=== PATIENT | female | born 1965 ===

== ENCOUNTER 2019-02-13 01:39 | Emergency (ER) | payer SELFPAY ==
[2019-02-13 01:58] VITALS: BP 123/89; TEMP 98.8; O2SAT 99
[2019-02-13] MEDS ORDERED: Sodium Chloride 0.9% 1,000 ML IV STA (02:08)
[2019-02-13 02:39] LABS: BASO % 0.1 % (0.0-2.0); BLOOD UREA NITROGEN 16 mg/dl (7-17); CALCIUM 10.4 mg/dL (8.4-10.2); GFR NON-AFRICAN AMERICAN > 60; HEMOGLOBIN 15.7 g/dL (12.0-16.0); LIPASE 85 U/L (23-300); LYMPH # 0.6 K/uL (1.0-4.3); LYMPH % 3.8 % (20.0-40.0); MEAN CELL VOLUME 93.9 fl (81.0-99.0); MEAN CORPUSCULAR HEMOGLOBIN 31.6 pg (27.0-31.0); MEAN CORPUSCULAR HGB CONC 33.7 g/dL (33.0-37.0); MEAN PLATELET VOLUME 8.4 fl (7.2-11.7); MONO # 0.9 K/uL (0.0-0.8); MONO % 5.9 % (0.0-10.0); NEUT # 13.9 K/uL (1.8-7.0); NEUT % 90.2 % (50.0-75.0); PLATELET COUNT 330 K/uL (130-400); RBC 4.96 Mil/uL (3.80-5.20); RED CELL DISTRIBUTION WIDTH 12.4 % (11.5-14.5); WHITE BLOOD COUNT 15.4 K/uL (4.8-10.8)
[2019-02-13 02:49] LABS: ALB/GLOB RATIO 0.9 (1.0-2.1); ALBUMIN 4.9 g/dL (3.5-5.0); ALT/SGPT 25 U/L (9-52); AST/SGOT 66 U/L (14-36)
--- NOTE | 2019-02-13 02:51 | ED PDOC ---
HPI: Abdomen Time Seen by Provider: 02/13/19 02:00 Chief Complaint (Nursing): Abdominal Pain Chief Complaint (Provider): Abdominal Pain History Per: Patient History/Exam Limitations: no limitations Onset/Duration Of Symptoms: Hrs (3-4) Additional Complaint(s): 53 y/o female with history of HTN and osteoporosis presents to the ED complaining of abdominal pain, vomiting, and diarrhea, onset about 3-4 hours ago. Patient reports she ate some fried fish for dinner and then developed acute nausea, vomiting, and diarrhea after. Patient reports vomiting is bilious but non-bloody and that she has vomited over 10 times; she also reports over 10 episodes of non-bloody diarrhea. Patient states abdominal pain is diffuse. PMD: Ant Solis Past Medical History Vital Signs: Last Vital Signs Temp 98.8 F 02/13/19 01:55 Pulse 108 H 02/13/19 01:55 Resp 20 02/13/19 01:55 BP 123/89 02/13/19 01:55 Pulse Ox 99 02/13/19 01:55 - Medical History PMH: HTN, Osteoporosis - Surgical History Surgical History: Cholecystectomy - Family History Family History: States: Unknown Family Hx - Social History Current smoker - smoking cessation education provided: No Alcohol: None Drugs: Denies - Home Medications Home Medications: Ambulatory Orders Medication Instructions Recorded Dicyclomine [Bentyl] 20 mg PO Q12 PRN #10 tab 02/13/19 Ondansetron ODT [Zofran ODT] 4 mg PO Q6 PRN #8 odt 02/13/19 - Allergies Allergies/Adverse Reactions: Allergies Allergy/AdvReac Type Severity Reaction Status Date / Time No Known Allergies Allergy Verified 02/13/19 01:55 Review of Systems ROS Statement: Except As Marked, All Systems Reviewed And Found Negative Gastrointestinal: Positive for: Nausea, Vomiting, Abdominal Pain, Diarrhea Physical Exam - Reviewed Nursing Documentation Reviewed: Yes Vital Signs Reviewed: Yes - Physical Exam Appears: Positive for: Uncomfortable Head Exam: Positive for: ATRAUMATIC, NORMAL INSPECTION, NORMOCEPHALIC Skin: Positive for: Normal Color, Warm, DRY Eye Exam: Positive for: EOMI, Normal appearance, PERRL ENT: Positive for: Other (tacky mucous membranes) Cardiovascular/Chest: Positive for: Regular Rate, Rhythm, Tachycardia. Negative for: Murmur Respiratory: Positive for: Normal Breath Sounds. Negative for: Wheezing Gastrointestinal/Abdominal: Positive for: Tenderness (epigastric) Back: Positive for: Normal Inspection Extremity: Positive for: Normal ROM. Negative for: Pedal Edema, Deformity Neurological/Psych: Positive for: Awake, Alert, Normal Tone. Negative for: Motor/Sensory Deficits - Laboratory Results Result Diagrams: 02/13/19 02:27 02/13/19 02:27 Lab Results: Lipase 85 U/L (23-300) 02/13/19 02:27 - ECG O2 Sat by Pulse Oximetry: 99 (RA) Pulse Ox Interpretation: Normal Medical Decision Making Medical Decision Making: Time:02:07 Initial Impression:53 y/o with acute gastroenteritis Initial Plan: * Labs * IV Fluids * Zofran 4 mg 02:37 Labs reviewed no clinically significant abnormalities with exception of elevated white blood cell count. CT ordered. 04:01 CT Abd Pelvis Findings: Multifocal thickening and enhancement of the colon. Multifocal thickening and enhancement of the small bowels which are fluid- filled. The visualized lung bases are unremarkable. 4.7 cm cyst in the left hepatic lobe. Normal remaining liver. Absent gallbladder and nondilated extrahepatic biliary system. Normal spleen. Normal pancreas. Normal bilateral adrenal glands. Normal size of the right kidney. There is no right renal mass. There are no right renal calculi. There is no right hydronephrosis. Normal visualized right ureter. Normal size of the left kidney. There is no left renal mass. There are no left renal calculi. There is no left hydronephrosis. Normal visualized left ureter. Normal visualized stomach. The appendix is visualized and appears normal. There is no demonstrated peritoneal fluid. Normal abdominal aorta. Normal inferior vena cava. Normal retroperitoneum. Normal urinary bladder. There is no pelvic mass lesion or lymphadenopathy. There is no pelvic fluid. Normal abdominal wall. Normal osseous structures. Impression: Uncomplicated enterocolitis. 04:14 Patient reports marked improvement of symptoms at this time. Patient will be discharged home diagnosis is gastroenteritis. Scribe Attestation: Documented by Moisés Peoples, acting as a scribe forDr. Andreas Tyler MD Provider Scribe Attestation: All medical record entries made by the Scribe were at my direction and personally dictated by me. I have reviewed the chart and agree that the record accurately reflects my personal performance of the history, physical exam, medical decision making, and the department course for this patient. I have also personally directed, reviewed, and agree with the discharge instructions and disposition. Disposition - Clinical Impression Clinical Impression: Gastroenteritis - Patient ED Disposition Is Patient to be Admitted: No - Disposition Disposition: Routine/Home Disposition Time: 04:14 Condition: STABLE Additional Instructions: MURPHY BAUGH, thank you for letting us take care of you today. Your provider was Andreas Tyler MD and you were treated for ABD PAIN,VOMITING. The emergency medical care you received today was directed at your acute symptoms. If you were prescribed any medication, please fill it and take as directed. It may take several days for your symptoms to resolve. Return to the Emergency Department if your symptoms worsen, do not improve, or if you have any other problems. Please contact your doctor or call one of the physicians/clinics you have been referred to that are listed on the Patient Visit Information form that is included in your discharge packet. Bring any paperwork you were given at discharge with you along with any medications you are taking to your follow up visit. Our treatment cannot replace ongoing medical care by a primary care provider outside of the emergency department. Thank you for allowing the [facility] team to be part of your care today. If you had an X-Ray or CT scan: A Radiologist will review the ED reading if any change in treatment is needed we will contact you. If you had a blood, urine, or wound culture: It will take several days for the results, if any change in treatment is needed we will contact you. If you had an STI test: It will take 48 hours for the results. Please call after 1 week if you have not heard back. Prescriptions: Dicyclomine [Bentyl] 20 mg PO Q12 PRN #10 tab PRN Reason: abdominal pain/diarrhea Ondansetron ODT [Zofran ODT] 4 mg PO Q6 PRN #8 odt PRN Reason: Nausea/Vomiting Instructions: Gastroenteritis (ED) Forms: [facility] (Estonian) Print Language: AZERI
[2019-02-13] MEDS ORDERED: Iohexol 300 100 ML IJ ONE (02:59)
[2019-02-13] MEDS ORDERED: Sodium Chloride 0.9% 50 ML IV ONE (02:59)
[2019-02-13 04:07] LABS: BANDS 5 % (0-2); LYMPHOCYTE 3 % (20-50); MONOCYTE 6 % (0-10); NEUTROPHIL 85 % (42-75); PLATELET ESTIMATE NORMAL (NORMAL); REACTIVE LYMPHOCYTES 1 % (0-0); TOTAL CELLS COUNTED 100
[2019-02-13 04:08] LABS: STOMATOCYTES SLIGHT; TEARDROP CELLS SLIGHT
[2019-02-13 06:18] VITALS: PULSE 78; RESP 16
--- NOTE | 2019-02-13 13:41 | CT ---
Date of service: 02/13/2019 PROCEDURE: CT Abdomen and Pelvis with contrast HISTORY: abd pain COMPARISON: None. TECHNIQUE: Contrast dose: 90 milliliters Radiation dose: Total exam DLP = 496.35 mGy-cm. This CT exam was performed using one or more of the following dose reduction techniques: Automated exposure control, adjustment of the mA and/or kV according to patient size, and/or use of iterative reconstruction technique. FINDINGS: LOWER THORAX: Unremarkable. LIVER: There is evidence of a smoothly marginated and slightly lobulated low-density cyst in the left lobe of the liver measuring 4.1 x 4 centimeters. This more than likely represents a hepatic cyst. There is additionally some subtle low density seen anteriorly in the on axial images forty-two through 44 series 3 and on coronal image 25 and additionally on sagittal image 51 more than likely representing small air focal fat. No intrahepatic ductal dilatation is seen. GALLBLADDER AND BILE DUCTS: Gallbladder has been previously removed. Common bile duct is normal in size for a post cholecystectomy patient of this age. PANCREAS: Unremarkable. No gross lesion or ductal dilatation. SPLEEN: Unremarkable. ADRENALS: Unremarkable. No mass. KIDNEYS AND URETERS: Unremarkable. No hydronephrosis. No solid mass. VASCULATURE: Unremarkable. No aortic aneurysm. No aortic atherosclerotic calcification or mural plaque present. BOWEL: Evaluation of the bowel reveals numerous fluid-filled but not significantly dilated small bowel loops throughout the entire small bowel region with some mild fold thickening suspicious for enteritis. There is additionally fluid within the colon with some mild amounts of possible subtle colonic wall thickening although the colon is not adequately distended. Findings probably suggest additional colitis. No free intraperitoneal air is seen. No abscess is seen adjacent to the bowel. APPENDIX: Normal appendix. PERITONEUM: No free intraperitoneal air or ascites. LYMPH NODES: Unremarkable. No enlarged lymph nodes. BLADDER: Unremarkable. REPRODUCTIVE: Unremarkable. BONES: Degenerative changes in the spine without lytic process. OTHER FINDINGS: None. IMPRESSION: Nonspecific enterocolitis with without abscess or adjacent fluid collection. No free intraperitoneal air to suggest bowel perforation. Two hepatic lesions are identified and described in detail above. Clinical follow-up for these is suggested. This agrees with preliminary report.
--- NOTE | 2019-02-14 18:47 | CARD ---
APPROVED REPORT Date of service: 02/13/2019 EKG Measurement Heart [id number] <Conclusion> Sinus tachycardia Otherwise normal ECG
== END 2019-02-13 04:41 | disposition home or self-care (01) ==
LOC: H.ER 01:39
DX: K52.9 Noninfective gastroenteritis and colitis, unspecified (principal)
CPT/HCPCS: 74177; 80053; 83690; 85025; 93005; 96360; 99283; J2405; J7030; Q9967